=== PATIENT | male | born 1990 | race Caucasian/White ===

== ENCOUNTER 2017-12-24 06:37 | Emergency (ER) | payer BC ==
[2017-12-24] MEDS: LIDOCAINE 1% (MDV) 10 ML INJ INJ (07:22)
== END 2017-12-24 07:46 | disposition home or self-care (01) ==
LOC: FTE 06:37
DX: L02.31 Cutaneous abscess of buttock (principal)
CPT/HCPCS: 10060; 99283-25

== ENCOUNTER 2017-12-26 06:44 | Emergency (ER) | payer BC | END 2017-12-26 07:15 | disposition home or self-care (01) | LOC: FTE 06:44 | DX: L02.31 Cutaneous abscess of buttock (principal) | CPT/HCPCS: 99281 ==